=== PATIENT | female | born 1990 | race Caucasian/White ===

== ENCOUNTER 2017-05-13 20:46 | Inpatient (IN) | payer MEDICAID ==
[2017-05-13 20:46] VITALS: BMI 37.0
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
[2017-05-14 00:56] LABS: HEMOGLOBIN 12.7 g/dL (12.0-16.0); MEAN CORPUSCULAR HEMOGLOBIN 24.7 pg (27.0-31.0); MEAN CORPUSCULAR HGB CONC 31.3 g/dL (33.0-37.0); RBC 5.12 Mil/uL (3.80-5.20); RED CELL DISTRIBUTION WIDTH 16.3 % (11.5-14.5); WHITE BLOOD COUNT 12.9 K/uL (4.8-10.8)
[2017-05-14 01:04] LABS: SQUAMOUS EPITHIAL 3 /hpf (0-5); URINE BACTERIA RARE (<OCC); URINE BILIRUBIN NEGATIVE (NEGATIVE); URINE BLOOD NEGATIVE (NEGATIVE); URINE CLARITY SLIGHTY-CLOUDY (Clear); URINE COLOR YELLOW (YELLOW); URINE GLUCOSE (UA) NEG (Normal); URINE LEUKOCYTE ESTERASE SMALL Leu/uL (Negative); URINE NITRATE NEGATIVE (NEGATIVE); URINE PROTEIN NEGATIVE (NEGATIVE); URINE UROBILINOGEN 0.2-1.0 mg/dL (0.2-1.0)
[2017-05-14 01:05] LABS: ALB/GLOB RATIO 1.3 (1.0-2.1); ALBUMIN 4.2 g/dL (3.5-5.0); ALT/SGPT 36 U/L (9-52); AST/SGOT 22 U/L (14-36); BLOOD UREA NITROGEN 10 mg/dl (7-17); CALCIUM 9.4 mg/dL (8.4-10.2); GFR AFRICAN-AMERICAN > 60; GFR NON-AFRICAN AMERICAN > 60
[2017-05-14 01:25] LABS: BARBITURATES, UR NEGATIVE (NEGATIVE); BENZODIAZEPINES, UR NEGATIVE (NEGATIVE); OPIATES, UR NEGATIVE (NEGATIVE); PHENCYCLIDINE, UR NEGATIVE (NEGATIVE)
--- NOTE | 2017-05-14 02:19 | ED PDOC ---
- Laboratory Results Result Diagrams: 05/14/17 00:51 05/14/17 00:51 - ECG O2 Sat by Pulse Oximetry: 100 - Progress ED Course And Treament: Case endorsed to underwriter from Gus GREENE pending crisis eval Patient evaluated by insulation worker; to be admitted to [facility]. Macrobid dose given in ED for UTI. Patient medically stable for psych admission. Disposition - Clinical Impression Clinical Impression: Depression, UTI (urinary tract infection) - POA Present On Arrival: None - Disposition Disposition: Admitted as In-Patient Disposition Time: 02:18 Condition: STABLE
[2017-05-14 02:50] VITALS: O2SAT 98
[2017-05-14] MEDS ORDERED: Alum-Mag Hydrox-Simethicone Susp (30 mL) PO PRN (03:47)
[2017-05-14] MEDS ORDERED: DiphenhydrAMINE 50 mg/ml Inj IM PRN (03:47)
[2017-05-14] MEDS ORDERED: Magnesium Hydroxide Susp 30 ml UD PO PRN (03:47)
--- NOTE | 2017-05-14 04:15 | PCM.BM ---
<Cisco Petit - Last Filed: 05/14/17 04:12> Treatment Plan Problems - Problems identified on initial assessmt Altered Sleep Pattern Date Initiated: 05/14/17 Time Initiated: 04:13 Assessment reference: NA Status: Active Less Than Optimal Nutrition Date Initiated: 05/14/17 Time Initiated: 04:14 Assessment reference: NA Status: Active Treatment assets and liabiliti Patient Assests: adapts well, cooperative, self-reliant, ADL independent, physically healthy, good support system Patient Liabilities: financial problems, other ( in family) - Milieu Protocol Maintain good personal hygiene: daily Encourage regular showers, daily Remind patient to perform daily oral care, daily Assist patient to perform ADL's Conduct patient checks and document Observation sheet: Q15 minutes Maintain personal safety: every shift Educate patient to report safety concerns to staff, every shift Monitor environment for contraband/sharps Medication safety: Monitor for expected outcome, potential side effects: every shift, Assess barriers to learning: every shift, Assess readiness for medication education: every shift <Abdiaziz Ramírez J - Last Filed: 05/17/17 11:44> Family Contact Family contact name: Helen () Family contacted how many times per week?: 4 Family contact comment: Envelope Folding Machine Operator placed call to patients /primary support ( Helen [phone]) to discuss precursors to hospitalization, progress on 3NP and aftercare. Envelope Folding Machine Operator provided clinical updates regarding patients progress and emphasized importance of compliance with aftercare. Patients expressed understanding of the above and denied having concerns regarding patients return home upon further stabilization. Envelope Folding Machine Operator to continue to provide updates thought patients hospitalization and discharge planning. - Goals for Treatment Patient goals for treatment: Pt reported that she would like to have more energy and to feel less depressed with resolved suicidal ideations. 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 PLease see family collateral note above completed by VIKTORIYA Ledezma. Discharge/Continuing Care - Education Needs Education Needs: Patient Medication, Patient Diagnosis/Disease Process, Patient Coping Skills, Patient Community resources, Patient Personal Hygiene/Grooming, Patient Aftercare Safety Plan - Discharge Discharge Criteria: Tolerates medication w/o severe side effects, Free of Suicidal thoughts, Free of paranoid thoughts, Free of agitation, Normal sleep pattern, Ability to care for self, Reduction of target symptoms Discharge to:: Home, With Family - Additional Comments 05/17/17 11:40 Pt reported that she is tired and feels that this is because she is getting too many medications during the day. Dr. Ferrer agreed to break up pt's Cymbalta to 30mg in the AM and 60mg HS. Dr. Ferrer reported that she does not feel comfortable raising pt's Abilify to more than 5mg at this time and will keep her other medications the same. Pt would like to remain at [facility] for med management and continue to see Ailyn at [facility] for therapy. Pt did admit to "on and off" suicidal ideations with intent, but without plan today. Pt verbalized wanting to leave either Saturday or Saturday. It was also agreed that pt's Klonopin would be moved to 1mg at 1330 and 2100. - Treatment Team Participation Discussed with Family/SO: Yes Was Patient/Family/SO present at Treatment Team Meeting: Yes
[2017-05-14 09:28] LABS: T4 9.01 ug/dl (5.5-11.0)
[2017-05-14 09:42] LABS: T3 1.23 nmol/L (1.49-2.60)
[2017-05-14] MEDS: Albuterol HFA 90 mcg/actuation (8 g) IH SCH ×3 (14:22→20:39)
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
[2017-05-15] MEDS: Albuterol HFA 90 mcg/actuation (8 g) IH SCH ×4 (02:45→21:34)
[2017-05-15] MEDS: Naproxen 500 MG TAB PO PRN (09:47)
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
[2017-05-16] MEDS: Albuterol HFA 90 mcg/actuation (8 g) IH SCH ×4 (02:00→21:08)
[2017-05-16 07:02] LABS: BASO # 0.1 K/uL (0.0-0.2); BASO % 0.7 % (0.0-2.0); EOS # 0.5 K/uL (0.0-0.7); LYMPH % 35.3 % (20.0-40.0); MEAN CELL VOLUME 79.1 fl (81.0-99.0); MEAN CORPUSCULAR HEMOGLOBIN 24.9 pg (27.0-31.0); MEAN CORPUSCULAR HGB CONC 31.4 g/dL (33.0-37.0); MEAN PLATELET VOLUME 8.2 fl (7.2-11.7); MONO # 0.7 K/uL (0.0-0.8); MONO % 6.2 % (0.0-10.0); NEUT # 6.1 K/uL (1.8-7.0); NEUT % 53.8 % (50.0-75.0); RBC 4.83 Mil/uL (3.80-5.20); RED CELL DISTRIBUTION WIDTH 16.1 % (11.5-14.5); WHITE BLOOD COUNT 11.4 K/uL (4.8-10.8)
[2017-05-16 07:28] LABS: ALB/GLOB RATIO 1.3 (1.0-2.1); ALBUMIN 3.7 g/dL (3.5-5.0); ALT/SGPT 33 U/L (9-52); AST/SGOT 18 U/L (14-36); BLOOD UREA NITROGEN 9 mg/dl (7-17); CALCIUM 9.2 mg/dL (8.4-10.2); GFR AFRICAN-AMERICAN > 60; GFR NON-AFRICAN AMERICAN > 60
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
[2017-05-17] MEDS: Albuterol HFA 90 mcg/actuation (8 g) IH SCH ×3 (02:00→14:00)
--- NOTE | 2017-05-17 11:19 | PCM.PYCHPN ---
Psychiatric Progress Note - Psychiatric Progress Note Patient seen today, length of contact: Patient evaluated, case discussed with team, chart reviewed Patient Chief Complaint: Patient continues to report feeling depressed and anxious. She reports that she feels overly tired in the morning, so we discussed changing the timing of her current medications. She reports that she has intermittent thoughts that she wishes she was , but denies active suicidal plan/intent and is able to contract for safety. NO AH/VH/HI/delusions. Medication Change: Yes (Change timing of Klonopin and Cymbalta) Medical Record Reviewed: Yes Consults ordered or reviewed: Medicine consult Mental Status Examination - Cognitive Function Orientation: Person, Place, Situation, Time Memory: Intact Attention: WNL Concentration: WNL Association: WNL Fund of Knowledge: [facility] Decription of patient's judgement and insights: Fair I/J - Mood Mood: Depressed, Anxious - Affect Affect: Constricted, Depressed - Speech Speech: Soft - Formal Thought Process Formal Thought Process: No Impairment Psychotic Thoughts and Behaviors: NO AH/VH/paranoia/delusions - Suicidal Ideation Suicidal Ideation: No - Homicidal Ideation Homicidal Ideation: No Goal/Treatment Plan - Goal/Treatment Plan Need for Continued Stay: Remain at risks for inpatient hospitalization, Severe depression anxiety, Discharge may exacerbated symptoms Progress Toward Problem(s) and Goals/Treatment Plan: Major Depressive Disorder; Generalized Anxiety Disorder; PTSD -Continue Trazodone, Abilify and Prazosin -Change timing of Cymbalta and Klonopin dosing -Individual and group therapy -Psychoeducation -Disposition planning Estimated Date of D/C: 05/20/17
[2017-05-18] MEDS: Albuterol HFA 90 mcg/actuation (8 g) IH SCH ×5 (07:16→20:05)
--- NOTE | 2017-05-18 10:43 | PCM.PYCHPN ---
Psychiatric Progress Note - Psychiatric Progress Note Patient seen today, length of contact: Patient evaluated, case discussed with team, chart reviewed Patient Chief Complaint: pt still feels sad and anxious at night and cant sleep pt denies suicidal ideation.pt denies hallucinations and still has poor insight regarding her suicidal attempt by overdose on pills and need further stabilization.pt has a lot of somatic complaints like back pain and burning in urine. Medication Change: Yes (Change timing of Klonopin and Cymbalta) Medical Record Reviewed: Yes Mental Status Examination - Cognitive Function Orientation: Person, Place, Situation, Time Memory: Intact Attention: WNL Concentration: WNL Association: WNL Fund of Knowledge: WNL - Mood Mood: Depressed, Anxious - Affect Affect: Constricted, Depressed - Speech Speech: Soft - Formal Thought Process Formal Thought Process: No Impairment - Suicidal Ideation Suicidal Ideation: No - Homicidal Ideation Homicidal Ideation: No Goal/Treatment Plan - Goal/Treatment Plan Need for Continued Stay: Remain at risks for inpatient hospitalization, Severe depression anxiety, Discharge may exacerbated symptoms Progress Toward Problem(s) and Goals/Treatment Plan: will continue cymbalta and abikify and titrate as needed to stabilize and will increase trazodone to 150 mg hs and engage pt in therapy and groups. Follow up with hospitalist for UTI and back pain.. Estimated Date of D/C: 05/20/17
[2017-05-18] MEDS: Naproxen 500 MG TAB PO PRN (19:08)
[2017-05-18] MEDS: Pantoprazole 40 mg EC Tab PO SCH (19:09)
[2017-05-19] MEDS: Naproxen 500 MG TAB PO PRN (08:05)
[2017-05-19] MEDS: Pantoprazole 40 mg EC Tab PO SCH (09:08)
[2017-05-19] MEDS: Albuterol HFA 90 mcg/actuation (8 g) IH SCH ×4 (09:09→21:00)
--- NOTE | 2017-05-19 13:04 | PCM.PYCHPN ---
Psychiatric Progress Note - Psychiatric Progress Note Patient seen today, length of contact: Patient evaluated, case discussed with team, chart reviewed Patient Chief Complaint: pt reports feeling sick with sore throat and nausea and prescribed zofran by hospitalist .pt still feels sad and anxious at night and cant sleep pt denies suicidal ideation.pt denies hallucinations and still has poor insight regarding her suicidal attempt by overdose on pills and need further stabilization.pt has a lot of somatic complaints like back pain and burning in urine. Medication Change: Yes (Change timing of Klonopin and Cymbalta) Medical Record Reviewed: Yes Mental Status Examination - Cognitive Function Orientation: Person, Place, Situation, Time Memory: Intact Attention: WNL Concentration: WNL Association: WNL Fund of Knowledge: WNL - Mood Mood: Depressed, Anxious - Affect Affect: Constricted, Depressed - Speech Speech: Soft - Formal Thought Process Formal Thought Process: No Impairment - Suicidal Ideation Suicidal Ideation: No - Homicidal Ideation Homicidal Ideation: No Goal/Treatment Plan - Goal/Treatment Plan Need for Continued Stay: Remain at risks for inpatient hospitalization, Severe depression anxiety, Discharge may exacerbated symptoms Progress Toward Problem(s) and Goals/Treatment Plan: will continue cymbalta and abikify and titrate as needed to stabilize and will increase trazodone to 150 mg hs and engage pt in therapy and groups. Follow up with hospitalist for UTI and back pain.. Estimated Date of D/C: 05/20/17
[2017-05-20] MEDS: Albuterol HFA 90 mcg/actuation (8 g) IH SCH ×4 (02:00→20:40)
[2017-05-20] MEDS: Pantoprazole 40 mg EC Tab PO SCH (08:42)
--- NOTE | 2017-05-20 19:43 | PCM.PYCHPN ---
Psychiatric Progress Note - Psychiatric Progress Note Patient seen today, length of contact: THIS NOTE WAS STARTED IN ER BY THIS PROJECT MANAGEMENT PROFESSIONAL TODAY Patient Chief Complaint: was feeling depressed suicidal thoughts after reported recent of sister in law with which she was reportedly close (pt previous admission to [facility], [place] was s/ p of brother in law with who she was reportedly very close". Problems Identified/Issues Discussed: alteration in mood Medication Change: Yes (Change timing of Klonopin and Cymbalta) Medical Record Reviewed: Yes Mental Status Examination - Cognitive Function Orientation: Person, Place, Situation, Time Memory: Intact Attention: WNL Concentration: WNL Association: WNL Fund of Knowledge: WNL - Mood Mood: Depressed, Anxious - Affect Affect: Constricted, Depressed - Speech Speech: Soft - Formal Thought Process Formal Thought Process: No Impairment - Suicidal Ideation Suicidal Ideation: No - Homicidal Ideation Homicidal Ideation: No Goal/Treatment Plan - Goal/Treatment Plan Need for Continued Stay: Remain at risks for inpatient hospitalization, Severe depression anxiety, Discharge may exacerbated symptoms Progress Toward Problem(s) and Goals/Treatment Plan: inpt admission per attending md vital signs and clinical assessment per protocol and per clinical status hospitalist consult cymbalta 90 mg po daily gabapentin 400mg po tid prns per unit protocol discharge planning in progress Estimated Date of D/C: 05/20/17
--- NOTE | 2017-05-20 20:13 | PCM.PYCHPN ---
Psychiatric Progress Note - Psychiatric Progress Note Patient seen today, length of contact: case discussed with team, chart reviewed Patient Chief Complaint: is feeling less depressed with less suicidal thoughts. admits that she has been fairly stable, at times somewhat irritable uncertain if related to abilify as she does not recall having this before, uncertain if dry eyes, ? changes in distance vision. pt is reported to have been out and about unit. staff report that pt is noted to be out in unit interacting with peers, denying any such complaints during shift today. Problems Identified/Issues Discussed: alteration in mood Medical Problems: per chart Diagnostic Results: per psychiatry per medicine per nursing per social work per recreational therapy Medication Change: Yes (pt may defer am dose of ability and discuss with team) Medical Record Reviewed: Yes Consults ordered or reviewed: pt being followed by hospitalist Mental Status Examination - Cognitive Function Orientation: Person, Place, Situation, Time Memory: Intact Attention: WNL Concentration: WNL Association: WNL Fund of Knowledge: WNL Decription of patient's judgement and insights: somewhat impaired - Mood Mood: Depressed, Anxious - Affect Affect: Constricted, Depressed - Speech Speech: Soft - Formal Thought Process Formal Thought Process: No Impairment - Suicidal Ideation Suicidal Ideation: No - Homicidal Ideation Homicidal Ideation: No Goal/Treatment Plan - Goal/Treatment Plan Need for Continued Stay: Remain at risks for inpatient hospitalization, Severe depression anxiety, Discharge may exacerbated symptoms Progress Toward Problem(s) and Goals/Treatment Plan: inpt milieu vital signs and clinical assessment per protocol and per clinical status adjust meds per status pt may defer abilify in am if desired and discuss with team prns per unit protocol discharge planning in progress Estimated Date of D/C: 05/20/17 - Smoking Cessation Smoking Cessation Initiated: No Reason for not providing: pt defers
[2017-05-21] MEDS: Albuterol HFA 90 mcg/actuation (8 g) IH SCH ×4 (02:00→21:12)
[2017-05-21] MEDS: Pantoprazole 40 mg EC Tab PO SCH (08:55)
--- NOTE | 2017-05-21 11:45 | PCM.PYCHPN ---
Psychiatric Progress Note - Psychiatric Progress Note Patient seen today, length of contact: Patient evaluated, case discussed with team, chart reviewed Patient Chief Complaint: Patient states that she does not want to take the Abilify anymore because she believes it is giving her blurred vision and "masked facies." Patient read some information on the potential side effects of the medications and is concerned that she will develop more adverse effects. On evaluation, patient does not have any visual defects or masked facies. She reports that her mood is improving. No current SI/HI. She is not agreeable to making any more medication changes and would like to be discharged to home tomorrow w/ outpatient follow-up. Psychoeducation was provided that that patient needs therapy more than continual medication modifications at this point as her symptoms would be better treated with prior authorization nurse therapy. Medication Change: Yes (Stop Abilify) Medical Record Reviewed: Yes Consults ordered or reviewed: Medicine consult Mental Status Examination - Cognitive Function Orientation: Person, Place, Situation, Time Memory: Intact Attention: WNL Concentration: WNL Association: WNL Fund of Knowledge: WN Decription of patient's judgement and insights: Fair I/J - Mood Mood: Anxious - Affect Affect: Broad - Speech Speech: Soft - Formal Thought Process Formal Thought Process: No Impairment Psychotic Thoughts and Behaviors: NO AH/VH/paranoia/delusions - Suicidal Ideation Suicidal Ideation: No - Homicidal Ideation Homicidal Ideation: No Goal/Treatment Plan - Goal/Treatment Plan Need for Continued Stay: Discharge may exacerbated symptoms Progress Toward Problem(s) and Goals/Treatment Plan: Major Depressive Disorder; Generalized Anxiety Disorder; PTSD -Continue Trazodone, Prazosin, Cymbalta and Klonopin -Stop Abilify -Individual and group therapy -Psychoeducation -Disposition planning Estimated Date of D/C: 05/22/17
[2017-05-22 09:08] VITALS: BP 148/99; PULSE 95; RESP 20; TEMP 97.3
[2017-05-22] MEDS: Albuterol HFA 90 mcg/actuation (8 g) IH SCH (09:31)
[2017-05-22] MEDS: Pantoprazole 40 mg EC Tab PO SCH (09:32)
--- NOTE | 2017-05-22 11:39 | PCM.PYCHDC ---
Mental Status Examination - Mental Status Examination Orientation: Person, Place, Situation, Time Memory: Intact Mood: Neutral Affect: Broad Speech: Appropriate Attention: WNL Concentration: WNL Association: WNL Fund of Knowledge: WNL Formal Thought Process: No Impairment Description of patient's judgement and insight: partial insight and fair judgment Psychotic Thoughts and Behaviors: pt denied any psychotic symptoms at current mental status, non elicited Suicidal Ideation: No Current Homicidal Ideation?: No Discharge Summary - Discharge Note Reason for Hospitalization: pt was feeling depressed came to er concerned about s/i without plan status reported of sister in law recently. reportedly very close. similar previous admission with reported of brother in law with whom she was very close. pt was following up at [facility] for psychiatry. [facility] indicate pt was discharge on cymbalta 90mg (pt also reported hx of left side chronic neuropathy) and gabapentin 400mg po tid. lives in [facility] with female signicant other. hs of self injurous behavior inlcuding cutting. previous hx of clonazepam use. Psychiatric History (includes Medical, Family, Personal Hx): presentation to er s/i inpt admission Consultations:: List each consultation separately and include: 1. Reason for request. 2. Findings. 3. Follow-up Summary of Hospital Course include:: 1. Description of specific treatment plan utilized for patients during their course of treatmen. 2. Summarize the time- course for resolution of acute symptoms and/or regressed behaviors. 3. Describe issues identified and worked on during hospitalization. 4. Describe medication utilized. 5. Describe medical problems identified and treated. 6. Reassessment of suicide risk Summary of Hospital Course: pt on admission was started on cymbalta and klonopin, and trazdone pt was offered group therapy and CBT, PT gradually presented with brighter affect oN discharge discussed with pt the possible precipitating factors for admission and possible coping skills with depression and alternative ways of communication other than self harm pt was able to verbalize coping startegies as calling her or her therapist pt mental status on discharge was stable, she denied any current suicidal or homicidal ideations any denied thoughts of self harm at current mental status not danger to self or others pt denied any current side effects of her medications, follow up arranged by social psychologist with outpatient psychiatrist and therapist - Final Diagnosis (DSM 5) Condition upon Discharge: STABLE DSM 5: major depression recurrent borderline pesonality disorder Disposition: HOME/ ROUTINE Prescriptions/Medication Reconciliation: clonazePAM [Klonopin] 1 mg PO HS 3 Days #3 tab clonazePAM [Klonopin] 1 mg PO DAILY@1300 3 Days #3 tab DULoxetine [Cymbalta] 30 mg PO DAILY 15 Days #15 ecc DULoxetine [Cymbalta] 60 mg PO HS 15 Days #15 ecc Gabapentin [Neurontin] 400 mg PO TID 45 Days #45 cap Prazosin HCl [Minipress] 1 mg PO HS 15 Days #15 cap Topiramate [Topamax] 100 mg PO HS 15 Days #15 tab Topiramate [Topamax] 50 mg PO DAILY 15 Days #15 tab traZODone [Desyrel] 150 mg PO HS 15 Days #45 tab - Antipsychotic Medications Pt discharged on 2 or more routine antipsychotic medications: No
== END 2017-05-22 14:33 | disposition home or self-care (01) | DRG 430 ==
LOC: H.ER 20:46 → H.ERHOLD 05-14 02:17 → H.PSYCH 05-14 03:30
PROVIDERS: ADMIT Psychiatry & Neurology Psychiatry; ATTEND Psychiatry & Neurology Psychiatry
DX: F33.9 Major depressive disorder, recurrent, unspecified (principal); R45.851 Suicidal ideations; G62.9 Polyneuropathy, unspecified; F41.1 Generalized anxiety disorder; Z68.42 Body mass index [BMI] 45.0-49.9, adult; E66.9 Obesity, unspecified; F43.10 Post-traumatic stress disorder, unspecified; G43.909 Migraine, unspecified, not intractable, without status migrainosus; Z62.810 Personal history of physical and sexual abuse in childhood; J02.9 Acute pharyngitis, unspecified; J45.909 Unspecified asthma, uncomplicated; Z91.5 Personal history of self-harm; F17.200 Nicotine dependence, unspecified, uncomplicated; F60.3 Borderline personality disorder

== ENCOUNTER 2017-09-11 18:37 | Inpatient (IN) | payer MEDICAID ==
[2017-09-11 18:37] VITALS: BMI 37.0
[2017-09-11 18:46] VITALS: O2SAT 100
[2017-09-11 20:39] LABS: OPIATES, UR NEGATIVE (NEGATIVE)
[2017-09-11 20:40] LABS: BARBITURATES, UR NEGATIVE (NEGATIVE); BENZODIAZEPINES, UR NEGATIVE (NEGATIVE)
--- NOTE | 2017-09-11 20:59 | ED PDOC ---
HPI: Psych/Substance Abuse Time Seen by Provider: 09/11/17 19:14 Chief Complaint (Nursing): Psychiatric Evaluation History Per: Patient History/Exam Limitations: no limitations Additional Complaint(s): 26 yo F presents for psychiatric evaluation for feeling depressed for 2 month, adds that she has been having SI x 1 week. Other psychiatric symptoms: (-) hallucinations, (+) suicidal ideation in the past, (-) homicidal ideation. Otherwise: (-) trauma, (-) fever, (-) headache, (-) dyspnea, (-) vomiting, (-) substance abuse, (-) patient intent of initiating a suicide attempt, (-) plan. Past Medical History Vital Signs: Last Vital Signs Temp 97.7 F 09/11/17 18:43 Pulse 84 09/11/17 18:43 Resp 16 09/11/17 18:43 BP 124/87 09/11/17 18:43 Pulse Ox 100 09/11/17 18:43 - Medical History PMH: Anxiety, Asthma, Bipolar Disorder, Bronchitis, Depression, Migraine, Personality Disorder, Post Traumatic Stress Disorder Denies: Alzheimer's Disease, Anemia, Arthritis, Cardia Arrhythmia, CHF, COPD , Crohn's Disease, Dementia, Diabetes, Diverticulitis, Emphysema, Fibromyalgia, Fractures, Gastrointestinal Ulcer, Gall Bladder Disease, Hepatitis, HIV, HTN, Hypercholesterolemia, Hyperthyroidism, Hypothyroidism, Kidney Stones, Mitral Valve Prolapse, Osteoporosis, Pancreatitis, Paranoia, Parkinson's Disease, Peripheral Edema, Pneumonia, Chronic Kidney Disease, Schizophrenia, Seizures, Sickle Cell Disease, Sexually Transmitted Disease, Sleep Apnea, TIA - Surgical History Surgical History: Denies: Appendectomy, Cholecystectomy, Coronary Stent, Pacemaker - Family History Family History: States: Unknown Family Hx - Home Medications Home Medications: Ambulatory Orders Medication Instructions Recorded clonazePAM [Klonopin] 1 mg PO BID PRN #60 tab 06/17/16 traZODone [Desyrel] 75 mg PO HS #45 tab 06/17/16 Gabapentin [Neurontin] 400 mg PO TID 09/08/16 Albuterol HFA [Ventolin HFA 90 2 puff IH [id number] #1 in 12/10/16 mcg/actuation (8 g)] Naproxen [Naprosyn] 500 mg PO DAILY 05/14/17 Sodium Chloride 0.65% [Deep Sea] 1 spray BARBARA PRN PRN MDD 14 days 05/14/17 only Topiramate [Topamax] 50 mg PO QD7 05/14/17 Tramadol HCl [Ultram] 50 mg PO Q6 05/14/17 DULoxetine [Cymbalta] 30 mg PO DAILY 15 Days #15 ecc 05/22/17 DULoxetine [Cymbalta] 60 mg PO HS 15 Days #15 ecc 05/22/17 Gabapentin [Neurontin] 400 mg PO TID 45 Days #45 cap 05/22/17 Prazosin HCl [Minipress] 1 mg PO HS 15 Days #15 cap 05/22/17 Topiramate [Topamax] 50 mg PO DAILY 15 Days #15 tab 05/22/17 Topiramate [Topamax] 100 mg PO HS 15 Days #15 tab 05/22/17 clonazePAM [Klonopin] 1 mg PO DAILY@1300 3 Days #3 tab 05/22/17 clonazePAM [Klonopin] 1 mg PO HS 3 Days #3 tab 05/22/17 traZODone [Desyrel] 150 mg PO HS 15 Days #45 tab 05/22/17 - Allergies Allergies/Adverse Reactions: Allergies Allergy/AdvReac Type Severity Reaction Status Date / Time beef derived (bovine) AdvReac VOMITING Verified 09/11/17 18:42 chicken derived AdvReac VOMITING Verified 09/11/17 18:42 PORK AdvReac VOMITING Verified 09/11/17 18:42 shellfish derived AdvReac VOMITING Verified 09/11/17 18:42 Review of Systems Constitutional: Negative for: Fever, Malaise Cardiovascular: Negative for: Chest Pain, Palpitations Respiratory: Negative for: Cough, Shortness of Breath Gastrointestinal: Negative for: Vomiting, Abdominal Pain, Diarrhea Genitourinary Female: Negative for: Dysuria, Hematuria Skin: Negative for: Rash, Lesions Neurological: Negative for: Weakness, Numbness Psych: Positive for: Anxiety, Depression, Suicidal ideation Physical Exam - Physical Exam Comments: GENERAL APPEARANCE: Patient is awake, alert, oriented x 3, in no acute distress. SKIN: Warm, dry; (-) cyanosis. HEAD: (-) scalp swelling, (-) scalp tenderness. EYES: (-) conjunctival pallor, (-) scleral icterus, (-) nystagmus. ENMT: Mucous membranes moist. Airway patent: (-) stridor. NECK: (-) tenderness, (-) stiffness, (-) lymphadenopathy. CHEST AND RESPIRATORY: (-) rales, (-) rhonchi, (-) wheezes; breath sounds equal. ABDOMEN: Soft, (-) distention, (-) tenderness, (-) guarding. NEURO AND PSYCH: Mental status as above. Affect: flat. Memory: Intact. wood chopper: Pupils equal and reactive; EOMI; (-) facial asymmetry; tongue and uvula midline. Strength symmetric. - Laboratory Results Result Diagrams: 09/11/17 21:15 09/11/17 21:15 - ECG O2 Sat by Pulse Oximetry: 100 Medical Decision Making Medical Decision Making: Plan : - Labs - Crisis evaluation Patient seen and evaluated by crisis. After crisis evaluation, plan will be for inpatient admission for depression as per Dr. Manriquez. Labs reviewed, patient noted to have a UTI. Medicated with macrobid PO. Disposition - Clinical Impression Clinical Impression: Depression, UTI (urinary tract infection) - Patient ED Disposition Is Patient to be Admitted: Yes Counseled Patient/Family Regarding: Studies Performed, Diagnosis - Disposition Disposition Time: 21:00 Condition: STABLE - PA / LOOM CHANGEOVER OPERATOR / Resident Statement /DO has reviewed & agrees with the documentation as recorded.
[2017-09-11 21:05] LABS: PHENCYCLIDINE, UR NEGATIVE (NEGATIVE)
[2017-09-11 21:26] LABS: BASO # 0.1 K/uL (0.0-0.2); BASO % 0.8 % (0.0-2.0); EOS # 0.5 K/uL (0.0-0.7); EOS % 4.4 % (0.0-4.0); HEMOGLOBIN 13.2 g/dL (12.0-16.0); LYMPH # 3.8 K/uL (1.0-4.3); LYMPH % 31.7 % (20.0-40.0); MEAN CELL VOLUME 80.7 fl (81.0-99.0); MEAN CORPUSCULAR HEMOGLOBIN 26.6 pg (27.0-31.0); MEAN CORPUSCULAR HGB CONC 32.9 g/dL (33.0-37.0); MEAN PLATELET VOLUME 8.7 fl (7.2-11.7); MONO # 0.3 K/uL (0.0-0.8); MONO % 2.8 % (0.0-10.0); NEUT # 7.2 K/uL (1.8-7.0); NEUT % 60.3 % (50.0-75.0); NRBC % 0.1 % (0.0-0.0); RBC 4.98 Mil/uL (3.80-5.20); RED CELL DISTRIBUTION WIDTH 14.6 % (11.5-14.5)
[2017-09-11 21:31] LABS: SQUAMOUS EPITHIAL 6 /hpf (0-5); URINE AMORPHOUS SEDIMENT RARE /ul (<OCC); URINE BACTERIA OCC (<OCC); URINE BILIRUBIN NEGATIVE (NEGATIVE); URINE BLOOD NEGATIVE (NEGATIVE); URINE CLARITY CLOUDY (Clear); URINE COLOR YELLOW (YELLOW); URINE GLUCOSE (UA) NEG (Normal); URINE LEUKOCYTE ESTERASE TRACE Leu/uL (Negative); URINE PROTEIN NEGATIVE (NEGATIVE); URINE UROBILINOGEN 0.2-1.0 mg/dL (0.2-1.0)
[2017-09-11 21:36] LABS: BLOOD UREA NITROGEN 7 mg/dl (7-17); CALCIUM 8.7 mg/dL (8.4-10.2); GFR AFRICAN-AMERICAN > 60; GFR NON-AFRICAN AMERICAN > 60
[2017-09-11] MEDS ORDERED: Magnesium Hydroxide Susp 30 ml UD PO PRN (22:50)
[2017-09-11] MEDS ORDERED: DiphenhydrAMINE 50 mg/ml Inj IM PRN (22:50)
[2017-09-11] MEDS ORDERED: Alum-Mag Hydrox-Simethicone Susp (30 mL) PO PRN (22:50)
--- NOTE | 2017-09-11 23:18 | PCM.BM ---
<Bouchra Robins - Last Filed: 09/11/17 23:29> Treatment Plan Problems - Problems identified on initial assessmt Altered Sleep Pattern Date Initiated: 09/11/17 Time Initiated: 23:17 Date resolved: 09/11/17 Assessment reference: NA Status: Active Nutrition More than Body Requirements Date Initiated: 09/11/17 Time Initiated: 23:18 Assessment reference: NA Status: Active Treatment assets and liabiliti Patient Assests: adapts well, cooperative, self-reliant, ADL independent, physically healthy, good support system, cognitively intact Patient Liabilities: relationship conflicts, medical problems - Milieu Protocol Maintain good personal hygiene: daily Remind patient to perform daily oral care , daily Assist patient to perform ADL's, every shift Encourage regular showers Conduct patient checks and document Observation sheet: Q15 minutes Maintain personal safety: every shift Educate patient to report safety concerns to staff, every shift Monitor environment for contraband/sharps Medication safety: Monitor for expected outcome, potential side effects: every shift, Assess barriers to learning: every shift, Assess readiness for medication education: every shift <Praveena Manriquez - Last Filed: 09/16/17 15:06> - Diagnosis (1) Depression Status: Acute Interventions: psychotherapy, pharmacotherapy 09/16/17 15:05
--- NOTE | 2017-09-12 07:14 | CP.PCM.HP ---
History of Present Illness - History of Present Illness History of Present Illness: pt admitted for depression/si. no hallucinations. no acute medical complaints offered. no f/c, n/v/d. med hx asthma. all bw and imaging noted. pt noted w/ uti in er, macrobid started. Present on Admission - Present on Admission Any Indicators Present on Admission: No Review of Systems - Psychiatric Psychiatric: As Per HPI, Depression, Suicidal Ideation Past Patient History - Infectious Disease Hx of Infectious Diseases: None - Tetanus Immunizations Tetanus Immunization: Unknown - Past Medical History & Family History Past Medical History?: Yes - Past Social History Smoking Status: Current Some Days Smoker - CARDIAC Hx Cardiac Disorders: No - PULMONARY Hx Respiratory Disorders: Yes Hx Asthma: Yes Hx Bronchitis: Yes - NEUROLOGICAL Hx Migraine: Yes - HEENT Hx HEENT Problems: No Hx Difficulty Chewing: No - RENAL Hx Chronic Kidney Disease: No Hx Kidney Stones: No - ENDOCRINE/METABOLIC Hx Endocrine Disorders: No Hx Hyperthyroidism: No Hx Hypothyroidism: No - HEMATOLOGICAL/ONCOLOGICAL Hx Anemia: Yes Hx Human Immunodeficiency Virus (HIV): No - INTEGUMENTARY Hx Dermatological Problems: No - MUSCULOSKELETAL/RHEUMATOLOGICAL Hx Arthritis: No Hx Fractures: No Hx Herniated Disk: Yes Hx Osteoporosis: No - GASTROINTESTINAL Hx Gastrointestinal Disorders: No Hx Crohn's Disease: No Hx Diverticulitis: No Hx Gall Bladder Disease: No Hx Pancreatitis: No - GENITOURINARY/GYNECOLOGICAL Hx Genitourinary Disorders: No Hx Sexually Transmitted Disorders: No - PSYCHIATRIC Hx Substance Use: No - SURGICAL HISTORY Hx Surgeries: No Hx Appendectomy: No Hx Cholecystectomy: No Hx Coronary Stent: No - ANESTHESIA Hx Anesthesia: No Hx Anesthesia Reactions: No Hx Malignant Hyperthermia: No Meds Allergies/Adverse Reactions: Allergies Allergy/AdvReac Type Severity Reaction Status Date / Time beef derived (bovine) AdvReac VOMITING Verified 09/11/17 18:42 chicken derived AdvReac VOMITING Verified 09/11/17 18:42 PORK AdvReac VOMITING Verified 09/11/17 18:42 shellfish derived AdvReac VOMITING Verified 09/11/17 18:42 Physical Exam - Constitutional Appears: Well, Non-toxic, No Acute Distress - Head Exam Head Exam: ATRAUMATIC, NORMAL INSPECTION, NORMOCEPHALIC - Eye Exam Eye Exam: EOMI, Normal appearance, PERRL Pupil Exam: NORMAL ACCOMODATION, PERRL - ENT Exam ENT Exam: Mucous Membranes Moist, Normal Exam - Neck Exam Neck exam: Positive for: Normal Inspection - Respiratory Exam Respiratory Exam: Clear to Auscultation Bilateral, NORMAL BREATHING PATTERN - Cardiovascular Exam Cardiovascular Exam: REGULAR RHYTHM, RRR, +S1, +S2 - GI/Abdominal Exam GI & Abdominal Exam: Normal Bowel Sounds, Soft. absent: Tenderness - Extremities Exam Extremities exam: Positive for: full ROM, normal capillary refill, normal inspection, pedal pulses present - Back Exam Back exam: NORMAL INSPECTION - Neurological Exam Neurological exam: Alert, CN II-XII Intact, Normal Gait, Oriented x3, Reflexes Normal - Psychiatric Exam Psychiatric exam: Normal Affect, Normal Mood - Skin Skin Exam: Dry, Intact, Normal Color, Warm Results - Vital Signs Recent Vital Signs: Last Vital Signs Temp 97.4 F L 09/11/17 22:47 Pulse 87 09/11/17 22:47 Resp 20 09/11/17 22:47 BP 132/82 09/11/17 22:47 Pulse Ox 100 09/11/17 22:09 - Labs Result Diagrams: 09/11/17 21:15 09/11/17 21:15 Labs: Laboratory Results - last 24 hr 09/11/17 09/11/17 09/11/17 20:15 21:15 21:15 WBC 12.0 H RBC 4.98 Hgb 13.2 Hct 40.2 MCV 80.7 L MCH 26.6 L MCHC 32.9 L RDW 14.6 H Plt Count 267 MPV 8.7 Neut % (Auto) 60.3 Lymph % (Auto) 31.7 [place] % (Auto) 2.8 Eos % (Auto) 4.4 H Baso % (Auto) 0.8 Neut # (Auto) 7.2 H Lymph # (Auto) 3.8 [place] # (Auto) 0.3 Eos # (Auto) 0.5 Baso # (Auto) 0.1 Sodium 140 Potassium 3.6 Chloride 107 Carbon Dioxide 26 Anion Gap 11 BUN 7 Creatinine 0.6 L Est GFR ( Amer) > 60 Est GFR (Non-Af Amer) > 60 Random Glucose 116 H Calcium 8.7 Urine Color Urine Clarity Urine pH Ur Specific [place] Urine Protein Urine Glucose (UA) Urine Ketones Urine Blood Urine Nitrate Urine Bilirubin Urine Urobilinogen Ur Leukocyte Esterase Urine RBC (Auto) Urine Microscopic WBC Ur Squamous Epith Cells Amorphous Sediment Urine Bacteria Urine Opiates Screen Negative Urine Methadone Screen Negative Ur Barbiturates Screen Negative Ur Phencyclidine Scrn Negative Ur Amphetamines Screen Negative U Benzodiazepines Scrn Negative U Oth Cocaine Metabols Negative U Cannabinoids Screen Negative Alcohol, Quantitative < 10 09/11/17 21:15 WBC RBC Hgb Hct MCV MCH MCHC RDW Plt Count MPV Neut % (Auto) Lymph % (Auto) [place] % (Auto) Eos % (Auto) Baso % (Auto) Neut # (Auto) Lymph # (Auto) [place] # (Auto) Eos # (Auto) Baso # (Auto) Sodium Potassium Chloride Carbon Dioxide Anion Gap BUN Creatinine Est GFR ( Amer) Est GFR (Non-Af Amer) Random Glucose Calcium Urine Color Yellow Urine Clarity Cloudy Urine pH 8.0 Ur Specific [place] 1.018 Urine Protein Negative Urine Glucose (UA) Neg Urine Ketones Negative Urine Blood Negative Urine Nitrate Negative Urine Bilirubin Negative Urine Urobilinogen 0.2-1.0 Ur Leukocyte Esterase Trace Urine RBC (Auto) 1 Urine Microscopic WBC 10 H Ur Squamous Epith Cells 6 H Amorphous Sediment Rare H Urine Bacteria Occ H Urine Opiates Screen Urine Methadone Screen Ur Barbiturates Screen Ur Phencyclidine Scrn Ur Amphetamines Screen U Benzodiazepines Scrn U Oth Cocaine Metabols U Cannabinoids Screen Alcohol, Quantitative Assessment & Plan (1) DVT prophylaxis Assessment and Plan: ambulation Status: Acute (2) Asthma, well controlled Assessment and Plan: albuterol prn Status: Acute (3) Depression Assessment and Plan: cont psych meds interventions, therapies Status: Acute (4) UTI (urinary tract infection) Assessment and Plan: macrobid, f/u cs Status: Acute Decision To Admit - Pt Status Changed To: Hospital Disposition Of: Inpatient - Admit Certification Admit to Inpatient:: After my assessment, the patient will require hospitalization for at least two midnights. This is because of the severity of symptoms shown, intensity of services needed, and/or the medical risk in this patient being treated as an outpatient. - . Bed Request Type: Adult Psychiatry Admitting Physician: Cari Cuello
[2017-09-12 09:48] LABS: T4 7.91 ug/dl (5.5-11.0)
[2017-09-12] MEDS: Albuterol HFA 90 mcg/actuation (8 g) IH SCH (10:45)
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
[2017-09-13] MEDS: Albuterol HFA 90 mcg/actuation (8 g) IH SCH ×5 (08:42→20:18)
[2017-09-13] MEDS: Naproxen 500 MG TAB PO SCH ×2 (15:19→21:21)
--- NOTE | 2017-09-13 16:04 | PCM.PYCHPN ---
Psychiatric Progress Note - Psychiatric Progress Note Patient seen today, length of contact: pt evaluated discussed with team chart reviewed Patient Chief Complaint: I get very anxious and I dissociate Problems Identified/Issues Discussed: pt evaluated with treatment team, presenting with anxious mood and affect, reported feeling depressed due to lack of structure in her life and loosing her job also due to being continuosly in pain, pt reported low energy and anhedonia, episodes of dissociation, discussed with pt increasing the dose of cymbalta, also discussed adding risperidone for low impulse control pt denied any current thought s of self harm, denied side effects of medications Medical Problems: hx of depression PTSD borderline personality, multiple inpatient hospitalizations, reportedly compliant with treatment DSM 5 Symptoms Update: major depression borderline personality disorder Medication Change: Yes (start risperidone) Medical Record Reviewed: Yes Mental Status Examination - Cognitive Function Orientation: Person, Place, Situation, Time Attention: WNL Concentration: Poor Association: WNL Fund of Knowledge: WNL Decription of patient's judgement and insights: partial insight poor judgment - Mood Mood: Depressed, Anxious - Affect Affect: Constricted, Depressed - Speech Speech: Soft - Formal Thought Process Formal Thought Process: Circumstantial Psychotic Thoughts and Behaviors: reported episodes of dissociation - Suicidal Ideation Suicidal Ideation: No - Homicidal Ideation Homicidal Ideation: No Goal/Treatment Plan - Goal/Treatment Plan Need for Continued Stay: Severe depression anxiety, Discharge may exacerbated symptoms Progress Toward Problem(s) and Goals/Treatment Plan: increase cymbalta 120mg daily neurontin 300mg tid discontinue abilify , start risperidone 0.5mg qhs , trazodone 100mg qhs minipress 2mg qhs monitor pt for psychopharmacological effects and side effect profile cbt group and supportive therapy
[2017-09-13] MEDS: Risperidone M tab 0.5MG PO SCH (21:22)
[2017-09-14] MEDS: Albuterol HFA 90 mcg/actuation (8 g) IH SCH ×5 (02:15→21:18)
--- NOTE | 2017-09-14 08:43 | PCM.PYCHPN ---
Psychiatric Progress Note - Psychiatric Progress Note Patient seen today, length of contact: pt evaluated discussed with team chart reviewed Patient Chief Complaint: pt is still very anxious and depressed and still has nightmares Medication Change: Yes (start risperidone) Medical Record Reviewed: Yes Mental Status Examination - Cognitive Function Orientation: Person, Place, Situation, Time Attention: WNL Concentration: Poor Association: WNL Fund of Knowledge: WNL - Mood Mood: Depressed, Anxious - Affect Affect: Constricted, Depressed - Speech Speech: Soft - Formal Thought Process Formal Thought Process: Circumstantial - Suicidal Ideation Suicidal Ideation: No - Homicidal Ideation Homicidal Ideation: No Goal/Treatment Plan - Goal/Treatment Plan Need for Continued Stay: Severe depression anxiety, Discharge may exacerbated symptoms Progress Toward Problem(s) and Goals/Treatment Plan: will change klonopin to 0.5,mg am and hs and continue to titrate meds . d/c plans as per dr munroe
[2017-09-14] MEDS: Naproxen 500 MG TAB PO SCH ×2 (09:14→21:30)
[2017-09-14] MEDS: Risperidone M tab 0.5MG PO SCH (21:15)
[2017-09-15] MEDS: Albuterol HFA 90 mcg/actuation (8 g) IH SCH ×4 (02:13→21:06)
[2017-09-15] MEDS: Naproxen 500 MG TAB PO SCH ×2 (09:13→21:05)
[2017-09-15] MEDS: Lidocaine 5% Patch TD SCH (09:16)
[2017-09-15] MEDS: Risperidone M tab 0.5MG PO SCH (21:05)
[2017-09-16] MEDS: Albuterol HFA 90 mcg/actuation (8 g) IH SCH ×4 (02:14→21:05)
[2017-09-16] MEDS: Naproxen 500 MG TAB PO SCH ×2 (09:45→21:04)
[2017-09-16] MEDS: Lidocaine 5% Patch TD SCH (09:51)
--- NOTE | 2017-09-16 15:17 | PCM.PYCHPN ---
Psychiatric Progress Note - Psychiatric Progress Note Patient seen today, length of contact: pt evaluated discussed with team chart reviewed Patient Chief Complaint: I am less depressed today Problems Identified/Issues Discussed: pt evaluated reported improved mood with the increase in cymbalta, feeling less anxious, brighter affect, participating in groups and interacting with other patients, discussed increasing risperidone to 1mg, for better impulse control, no reported side effects of medications , pt denied any current suicidal or homiocidal ideation, denied perceptual disturbances Medical Problems: hx of depression PTSD borderline personality, multiple inpatient hospitalizations, reportedly compliant with treatment DSM 5 Symptoms Update: major depression PTSD borderline personality disorder Medication Change: Yes (increase risperidone) Medical Record Reviewed: Yes Mental Status Examination - Cognitive Function Orientation: Person, Place, Situation, Time Attention: WNL Concentration: Poor Association: WNL Fund of Knowledge: WNL - Mood Mood: Depressed, Anxious - Affect Affect: Constricted, Depressed - Speech Speech: Soft - Formal Thought Process Formal Thought Process: Circumstantial - Suicidal Ideation Suicidal Ideation: No - Homicidal Ideation Homicidal Ideation: No Goal/Treatment Plan - Goal/Treatment Plan Need for Continued Stay: Severe depression anxiety, Discharge may exacerbated symptoms Progress Toward Problem(s) and Goals/Treatment Plan: cymbalta 120mg daily neurontin 300mg tid increase risperidone 0.5mg1mg qhs , trazodone 100mg qhs minipress 2mg qhs monitor pt for psychopharmacological effects and side effect profile cbt group and supportive therapy
[2017-09-17] MEDS: Albuterol HFA 90 mcg/actuation (8 g) IH SCH ×2 (02:00→09:01)
--- NOTE | 2017-09-17 07:50 | CP.PCM.PN ---
Subjective - Date & Time of Evaluation Date of Evaluation: 09/17/17 Time of Evaluation: 07:49 - Subjective Subjective: pt doing well. no f/c, n/v/d. no copmlaints. psych services continueing Objective - Vital Signs/Intake and Output Vital Signs (last 24 hours): Temp Pulse Resp BP Pulse Ox 97.1 F L 84 20 131/81 100 09/16/17 17:00 09/16/17 17:00 09/16/17 17:00 09/16/17 17:00 09/11/17 22:09 - Medications Medications: Current Medications Acetaminophen (Tylenol 325mg Tab) 650 mg PO Q4 PRN PRN Reason: Pain, moderate (4-7) Last Admin: 09/14/17 16:00 Dose: 650 mg Al Hydrox/Mg Hydrox/Simethicone (Maalox Plus 30 Ml) 30 ml PO Q4 PRN PRN Reason: Dyspepsia Albuterol (Ventolin Hfa 90 Mcg/Actuation (8 G)) 2 puff IH RQ6 [facility] Last Admin: 09/17/17 02:00 Dose: Not Given Clonazepam (Klonopin) 0.5 mg PO AMHS [facility] Last Admin: 09/16/17 21:03 Dose: 0.5 mg Diphenhydramine HCl (Benadryl) 50 mg IM Q6 PRN PRN Reason: Extrapyramidal S/S Unable PO Diphenhydramine HCl (Benadryl) 50 mg PO Q6 PRN PRN Reason: Extrapyramidal Symptoms Diphenhydramine HCl (Benadryl) 50 mg PO HS PRN PRN Reason: Sleep Last Admin: 09/12/17 23:27 Dose: 50 mg Duloxetine HCl (Cymbalta) 120 mg PO DAILY [facility] Last Admin: 09/16/17 09:43 Dose: 120 mg Gabapentin (Neurontin) 300 mg PO TID [facility] Last Admin: 09/16/17 17:59 Dose: 300 mg Haloperidol (Haldol) 5 mg PO Q4 PRN PRN Reason: Agitation Haloperidol Lactate (Haldol) 5 mg IM Q4 PRN PRN Reason: Agitation, Unable to Take PO Hydroxyzine Pamoate (Vistaril) 50 mg PO Q8 PRN PRN Reason: Anxiety Lidocaine (Lidoderm) 1 ea TD DAILY [facility] Last Admin: 09/16/17 09:51 Dose: 1 ea Magnesium Hydroxide (Milk Of Magnesia) 30 ml PO HS PRN PRN Reason: Constipation Naproxen (Naproxen) 500 mg PO Q12 [facility] Last Admin: 09/16/17 21:04 Dose: 500 mg Nitrofurantoin Macrocrystals (Macrobid) 100 mg PO Q12 [facility] PRN Reason: Protocol Last Admin: 09/16/17 21:03 Dose: 100 mg Prazosin HCl (Minipress) 2 mg PO [facility] Last Admin: 09/16/17 21:03 Dose: 2 mg Risperidone (Risperdal Tab) 1 mg PO HS [facility] Last Admin: 09/16/17 21:03 Dose: 1 mg Trazodone HCl (Desyrel) 100 mg PO [facility] Last Admin: 09/16/17 21:03 Dose: 100 mg - Labs Labs: 09/11/17 21:15 09/11/17 21:15 - Constitutional Appears: Well, Non-toxic, No Acute Distress - Head Exam Head Exam: ATRAUMATIC, NORMAL INSPECTION, NORMOCEPHALIC - Eye Exam Eye Exam: EOMI, Normal appearance, PERRL Pupil Exam: NORMAL ACCOMODATION, PERRL - ENT Exam ENT Exam: Mucous Membranes Moist, Normal Exam - Neck Exam Neck Exam: Full ROM, Normal Inspection. absent: Lymphadenopathy - Respiratory Exam Respiratory Exam: Clear to Ausculation Bilateral, NORMAL BREATHING PATTERN - Cardiovascular Exam Cardiovascular Exam: REGULAR RHYTHM, RRR, +S1, +S2. absent: Murmur - GI/Abdominal Exam GI & Abdominal Exam: Soft, Normal Bowel Sounds. absent: Tenderness - Extremities Exam Extremities Exam: Full ROM, Normal Capillary Refill, Normal Inspection. absent : Joint Swelling, Pedal Edema - Back Exam Back Exam: NORMAL INSPECTION - Neurological Exam Neurological Exam: Alert, Awake, CN II-XII Intact, Normal Gait, Oriented x3 - Psychiatric Exam Psychiatric exam: Normal Affect, Normal Mood - Skin Skin Exam: Dry, Intact, Normal Color, Warm Assessment and Plan (1) DVT prophylaxis Status: Acute (2) Asthma, well controlled Status: Acute (3) Depression Status: Acute (4) UTI (urinary tract infection) Status: Acute - Assessment and Plan (Free Text) Assessment: (1) DVT prophylaxis Assessment and Plan: ambulation Status: Acute (2) Asthma, well controlled Assessment and Plan: albuterol prn Status: Acute (3) Depression Assessment and Plan: cont psych meds interventions, therapies Status: Acute (4) UTI (urinary tract infection) Assessment and Plan: macrobid, f/u cs, anbx until 09/19 Status: Acute
[2017-09-17] MEDS: Naproxen 500 MG TAB PO SCH (08:57)
[2017-09-17] MEDS: Lidocaine 5% Patch TD SCH (09:01)
[2017-09-17 09:28] VITALS: BP 138/83; PULSE 76; RESP 18; TEMP 96.4
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
== END 2017-09-17 12:01 | disposition home or self-care (01) | DRG 430 ==
LOC: H.ER 18:37 → H.ERHOLD 21:17 → H.PSYCH 22:42
PROVIDERS: ADMIT Psychiatry & Neurology Psychiatry; ATTEND Psychiatry & Neurology Psychiatry
PROC: GZ51ZZZ Individual Psychotherapy, Behavioral (ICD-10-PCS; 2017-09-12)
PROC: GZHZZZZ Group Psychotherapy (ICD-10-PCS; principal; 2017-09-13)
DX: F33.2 Major depressive disorder, recurrent severe without psychotic features (principal); N39.0 Urinary tract infection, site not specified; F43.10 Post-traumatic stress disorder, unspecified; F60.3 Borderline personality disorder; G47.00 Insomnia, unspecified; J45.909 Unspecified asthma, uncomplicated; R45.851 Suicidal ideations; D64.9 Anemia, unspecified; F31.9 Bipolar disorder, unspecified; F41.9 Anxiety disorder, unspecified; G43.909 Migraine, unspecified, not intractable, without status migrainosus; J40 Bronchitis, not specified as acute or chronic; Z79.899 Other long term (current) drug therapy; F17.200 Nicotine dependence, unspecified, uncomplicated

== ENCOUNTER 2017-11-28 22:40 | Inpatient (IN) | payer MEDICAID ==
[2017-11-28 22:40] VITALS: BMI 37.0
[2017-11-29 01:03] LABS: BASO # 0.1 K/uL (0.0-0.2); BASO % 0.8 % (0.0-2.0); EOS # 0.5 K/uL (0.0-0.7); EOS % 4.4 % (0.0-4.0); HEMOGLOBIN 12.4 g/dL (12.0-16.0); LYMPH # 3.5 K/uL (1.0-4.3); LYMPH % 30.1 % (20.0-40.0); MEAN CELL VOLUME 81.9 fl (81.0-99.0); MEAN CORPUSCULAR HEMOGLOBIN 26.6 pg (27.0-31.0); MEAN CORPUSCULAR HGB CONC 32.5 g/dL (33.0-37.0); MEAN PLATELET VOLUME 8.8 fl (7.2-11.7); MONO # 0.7 K/uL (0.0-0.8); MONO % 5.8 % (0.0-10.0); NEUT # 6.9 K/uL (1.8-7.0); NEUT % 58.9 % (50.0-75.0); RBC 4.66 Mil/uL (3.80-5.20); RED CELL DISTRIBUTION WIDTH 14.6 % (11.5-14.5); WHITE BLOOD COUNT 11.7 K/uL (4.8-10.8)
[2017-11-29 01:10] LABS: SQUAMOUS EPITHIAL 9 /hpf (0-5); URINE BACTERIA RARE (<OCC); URINE BILIRUBIN NEGATIVE (NEGATIVE); URINE BLOOD NEGATIVE (NEGATIVE); URINE CLARITY CLOUDY (Clear); URINE COLOR YELLOW (YELLOW); URINE GLUCOSE (UA) NEG (Normal); URINE LEUKOCYTE ESTERASE MOD Leu/uL (Negative); URINE PROTEIN 30 mg/dL (NEGATIVE)
[2017-11-29 01:12] LABS: ACETAMINOPHEN < 10.0 ug/ml (10.0-30.0); SALICYLATE < 1.0 mg/dl
[2017-11-29 01:19] LABS: BLOOD UREA NITROGEN 9 mg/dl (7-17); CALCIUM 9.3 mg/dL (8.4-10.2); GFR AFRICAN-AMERICAN > 60; GFR NON-AFRICAN AMERICAN > 60
[2017-11-29 01:25] LABS: BENZODIAZEPINES, UR NEGATIVE (NEGATIVE)
[2017-11-29 01:32] LABS: BARBITURATES, UR NEGATIVE (NEGATIVE); OPIATES, UR POSITIVE (NEGATIVE); PHENCYCLIDINE, UR NEGATIVE (NEGATIVE)
--- NOTE | 2017-11-29 02:51 | ED PDOC ---
HPI: Psych/Substance Abuse Time Seen by Provider: 11/28/17 23:42 Chief Complaint (Nursing): Psychiatric Evaluation Chief Complaint (Provider): Psychiatric Evaluation History Per: Patient History/Exam Limitations: no limitations Additional Complaint(s): Patient is a 27 y/o female with history of PTSD, anxiety and panic disorder who presents to the ED for psychiatric evaluation. Patient states she has lost 3 family members this past year and she is now hallucinating that she is hearing and seeing them. Patient states that they are telling her to "join them." She denies suicidal or homicidal ideation. Denies drugs or alcohol abuse. Past Medical History Reviewed: Historical Data, Nursing Documentation, Vital Signs Vital Signs: Last Vital Signs Temp 98.4 F 11/28/17 23:28 Pulse 83 11/28/17 23:28 Resp 19 11/28/17 23:28 BP 114/72 11/28/17 23:28 Pulse Ox 97 11/28/17 23:28 - Medical History PMH: Anemia, Anxiety, Asthma, Bipolar Disorder, Bronchitis, Depression, Migraine , Personality Disorder, Post Traumatic Stress Disorder Denies: Alzheimer's Disease, Arthritis, Cardia Arrhythmia, CHF, COPD, Crohn' s Disease, Dementia, Diabetes, Diverticulitis, Emphysema, Fibromyalgia, Fractures, Gastrointestinal Ulcer, Gall Bladder Disease, Hepatitis, HIV, HTN, Hypercholesterolemia, Hyperthyroidism, Hypothyroidism, Kidney Stones, Mitral Valve Prolapse, Osteoporosis, Pancreatitis, Paranoia, Parkinson's Disease, Peripheral Edema, Pneumonia, Chronic Kidney Disease, Schizophrenia, Seizures, Sickle Cell Disease, Sexually Transmitted Disease, Sleep Apnea, TIA - Surgical History Surgical History: Denies: Appendectomy, Cholecystectomy, Coronary Stent, Pacemaker - Family History Family History: States: Unknown Family Hx - Social History Alcohol: None Drugs: Denies - Home Medications Home Medications: Ambulatory Orders Medication Instructions Recorded Tramadol HCl [Ultram] 50 mg PO Q8 05/14/17 Prazosin HCl [Minipress] 2 mg PO HS 30 Days #30 cap 09/17/17 traZODone [Desyrel] 100 mg PO HS 30 Days #30 tab 09/17/17 Acetaminophen with Codeine 1 tab PO TID 11/29/17 [Tylenol with Codeine No. 4 300 mg-60 mg] DULoxetine [Cymbalta] 120 mg PO HS 11/29/17 Gabapentin [Neurontin] 400 mg PO TID 11/29/17 clonazePAM [Klonopin] 0.5 mg PO BID 11/29/17 risperiDONE [RisperDAL Tab] 2 mg PO HS 11/29/17 - Allergies Allergies/Adverse Reactions: Allergies Allergy/AdvReac Type Severity Reaction Status Date / Time beef derived (bovine) AdvReac VOMITING Verified 11/28/17 23:27 chicken derived AdvReac VOMITING Verified 11/28/17 23:27 PORK AdvReac VOMITING Verified 11/28/17 23:27 shellfish derived AdvReac VOMITING Verified 11/28/17 23:27 Review of Systems ROS Statement: Except As Marked, All Systems Reviewed And Found Negative Constitutional: Negative for: Fever Psych: Positive for: Psychosis (hallucinations). Negative for: Suicidal ideation Physical Exam - Reviewed Nursing Documentation Reviewed: Yes Vital Signs Reviewed: Yes - Physical Exam Appears: Positive for: Non-toxic, No Acute Distress Head Exam: Positive for: ATRAUMATIC, NORMOCEPHALIC Skin: Positive for: Normal Color, Warm, Dry Eye Exam: Positive for: EOMI, Normal appearance, PERRL Neck: Positive for: Normal, Painless ROM Cardiovascular/Chest: Positive for: Regular Rate, Rhythm. Negative for: Murmur Respiratory: Positive for: Normal Breath Sounds. Negative for: Respiratory Distress Gastrointestinal/Abdominal: Positive for: Normal Exam, Soft. Negative for: Tenderness Back: Positive for: Normal Inspection. Negative for: L CVA Tenderness, R CVA Tenderness Extremity: Positive for: Normal ROM. Negative for: Pedal Edema, Deformity Neurologic/Psych: Positive for: Alert, Oriented, Mood/Affect (Depressed). Negative for: Motor/Sensory Deficits - Laboratory Results Result Diagrams: 11/29/17 00:47 11/29/17 00:47 - ECG O2 Sat by Pulse Oximetry: 97 (RA) Pulse Ox Interpretation: Normal Medical Decision Making Medical Decision Making: Time: 00:12 Impression: 27 y/o female with history of PTSD and anxiety presenting with likely exacerbation of chronic conditions secondary to loss of family members. Initial Plan: --Acetaminophen --Alcohol serum --BMP --Drug screen --Salicylate --Crisis Evaluation --CBC w/ diff --UA 300 --Patient meets admission criteria according to Dr. Manriquez. Will be admitted with dx: depression. ----- Scribe Attestation: Documented by Wagner Cooper, acting as a scribe for Garland Zuniga MD. Provider Scribe Attestation: All medical record entries made by the Scribe were at my direction and personally dictated by me. I have reviewed the chart and agree that the record accurately reflects my personal performance of the history, physical exam, medical decision making, and the department course for this patient. I have also personally directed, reviewed, and agree with the discharge instructions and disposition. Disposition - Clinical Impression Clinical Impression: Depression - Disposition Disposition Time: 03:00 Condition: FAIR
[2017-11-29 04:20] VITALS: O2SAT 97
[2017-11-29] MEDS ORDERED: DiphenhydrAMINE 50 mg/ml Inj IM PRN (06:49)
[2017-11-29] MEDS ORDERED: Magnesium Hydroxide Susp 30 ml UD PO PRN (06:49)
[2017-11-29] MEDS ORDERED: Alum-Mag Hydrox-Simethicone Susp (30 mL) PO PRN (06:49)
--- NOTE | 2017-11-29 11:07 | PCM.PSYCH ---
Initial Psychiatric Evaluation - Initial Psychiatric Evaluation Type of Admission: Voluntary Legal Status: Capacity Chief Complaint (in patient's own words): "I'm hearing voices telling me to kill myself." Patient's Reaction to Hospitalization: HPI: 27 yo female w/ h/o MDD, PTSD, RIA, Borderline Personality Disorder presents w/ worsening depression and anxiety in the context of a in a family 3 weeks ago. She reports hearing AH telling her to kill herself and join her family members. She is able to contract for safety at this time but does report feeling intermittent suicidal ideations. She reports feelings of hopelessness and sleep/appetite disturbances. PMHx: Asthma, chronic back pain, herniated disks, Fibromyalgia PPHx: Multiple past psychiatric admission for depression/anxiety, currently being tx w/ Klonopin, Cymbalta, Prazosin, Risperdal and Trazodone; Risperdal increased yesterday by primary psychiatrist ALL: beef, chicken, pork, shellfish; no drug allergies SHx: Lives w/ , smokes 1/2 ppd; denies drugs/etoh FHx: "everyone in my family has mental illness" Current Medications: Active Medications Generic Name Dose Route Start Last Admin Trade Name Freq PRN Reason Stop Dose Admin Acetaminophen 650 mg 11/29/17 06:49 Tylenol 325mg Tab PO Q4 PRN pain level 4-7 Al Hydrox/Mg Hydrox/Simethicone 30 ml 11/29/17 06:49 Maalox Plus 30 Ml PO Q4 PRN Dyspepsia Clonazepam 0.5 mg 11/29/17 21:00 Klonopin PO Q12 NIXON Diphenhydramine HCl 50 mg 11/29/17 06:49 Benadryl IM Q6 PRN Extrapyramidal S/S Unable PO Diphenhydramine HCl 50 mg 11/29/17 06:49 Benadryl PO Q6 PRN Extrapyramidal Symptoms Diphenhydramine HCl 50 mg 11/29/17 06:53 Benadryl PO HS PRN Sleep Duloxetine HCl 120 mg 11/29/17 22:00 Cymbalta PO HS NIXON Gabapentin 400 mg 11/29/17 13:00 Neurontin PO TID NIXON Haloperidol 5 mg 11/29/17 06:49 Haldol PO Q4 PRN Agitation Haloperidol Lactate 5 mg 11/29/17 06:49 Haldol IM Q4 PRN Agitation, Unable to Take PO Lorazepam 1 mg 11/29/17 06:49 Ativan IM Q8H PRN Anxiety/Agitation,Unable PO Lorazepam 1 mg 11/29/17 06:49 Ativan PO Q8 PRN Anxiety/Agitation Magnesium Hydroxide 30 ml 11/29/17 06:49 Milk Of Magnesia PO HS PRN Constipation Prazosin HCl 2 mg 11/29/17 22:00 Minipress PO HS NIXON Risperidone 2 mg 11/29/17 22:00 Risperdal Tab PO HS NIXON Tramadol HCl 50 mg 11/29/17 10:40 Ultram PO Q8 PRN Pain, moderate (4-7) Trazodone HCl 100 mg 11/29/17 22:00 Desyrel PO HS NIXON Past Psychiatric History - Past Psychiatric History Previous Treatment History: Inpatient Pertinent Medical Hx (Current Medical&Sleep Prob, Allergies): Allergies Allergy/AdvReac Type Severity Reaction Status Date / Time beef derived (bovine) AdvReac VOMITING Verified 11/28/17 23:27 chicken derived AdvReac VOMITING Verified 11/28/17 23:27 PORK AdvReac VOMITING Verified 11/28/17 23:27 shellfish derived AdvReac VOMITING Verified 11/28/17 23:27 Tramadol HCl [Ultram] 50 mg PO Q8 05/14/17 Prazosin HCl [Minipress] 2 mg PO HS 30 Days #30 cap 09/17/17 traZODone [Desyrel] 100 mg PO HS 30 Days #30 tab 09/17/17 Acetaminophen with Codeine [Tylenol with Codeine No. 4 300 mg-60 mg] 1 tab PO TID 11/29/17 DULoxetine [Cymbalta] 120 mg PO HS 11/29/17 Gabapentin [Neurontin] 400 mg PO TID 11/29/17 clonazePAM [Klonopin] 0.5 mg PO BID 11/29/17 risperiDONE [RisperDAL Tab] 2 mg PO HS 11/29/17 Review of Systems - Psychiatric Psychiatric: As Per HPI, Abnormal Sleep Pattern, Anxiety, Auditory Hallucinations, Behavioral Changes, Change in Appetite, Depression, Difficulty Concentrating, Hopelessness, Irritability, Mood Swings Mental Status Examination - Personal Presentation Personal Presentation: Looks stated age, Obese - Affect Affect: Constricted, Depressed - Motor Activity Motor Activity: Calm - Reliability in Providing Information Reliability in Providing Information: Good - Speech Speech: Organized - Mood Mood: Depressed, Anxious - Formal Thought Process Formal Thought Process: Hallucinations - Hallucinations/Delusions Hallucinations: Auditory - Obsessions/Compulsions Obsessions: No Compulsions: No - Cognitive Functions Orientation: Person, Place, Situation, Time Sensorium: Alert Attention/Concentration: Attentive Estimate of Intelligence: Average Judgement: Intact, as evidence by: Insight regarding need for hospitalization Memory: Recent intact, as evidence by: Ability to recall events of the day, Remote intact, as evidenced by: Abilit to recall sig. life events, Remote intact , as evidenced by: Ability to recall historical events - Risk Risk: Suicidal, Diminished functioning - Strength & Assets Inventory Strength & Assets Inventory: Family support, Cooperative DSM 5 DX - DSM 5 DSM 5 Diagnosis: Major Depressive Disorder w/ Psychotic Features; Generalized Anxiety Disorder; PTSD; Borderline Personality Disorder - Recommended/Plan of Treatment Treatment Recommendations and Plan of Treatment: Major Depressive Disorder w/ Psychotic Features; Generalized Anxiety Disorder; PTSD; Borderline Personality Disorder -Admit to psychiatry unit -Individual and group therapy -Medication management -Medicine consult -Psychoeducation -Nicotine patch -Disposition planning Projected ELOS: 5-9 days Discharge Plan and Discharge Criteria: Discharge when patient is psychiatrically stable - Smoking Cessation Smoking Cessation Initiated: Yes
[2017-11-30] MEDS ORDERED: guaiFENesin DM 200 mg-20 mg/10 ml UD PO PRN (07:27)
--- NOTE | 2017-11-30 07:27 | CP.PCM.HP ---
History of Present Illness - History of Present Illness History of Present Illness: pt admitted for depression. nosi/hi verbalized at this time. no hallucinations. c/o cough/congestion. no f/c, n/v/d. Present on Admission - Present on Admission Any Indicators Present on Admission: No Review of Systems - EENT Nose/Mouth/Throat: As Per HPI, Nasal Congestion - Respiratory Respiratory: As Per HPI, Cough Past Patient History - Infectious Disease Hx of Infectious Diseases: None - Tetanus Immunizations Tetanus Immunization: Unknown - Past Medical History & Family History Past Medical History?: Yes - Past Social History Alcohol: None Drugs: Denies - CARDIAC Hx Cardiac Disorders: No - PULMONARY Hx Respiratory Disorders: No - NEUROLOGICAL Hx Neurological Disorder: No - HEENT Hx HEENT Problems: No - RENAL Hx Chronic Kidney Disease: No - ENDOCRINE/METABOLIC Hx Endocrine Disorders: No - HEMATOLOGICAL/ONCOLOGICAL Hx Blood Disorders: No - INTEGUMENTARY Hx Dermatological Problems: No - MUSCULOSKELETAL/RHEUMATOLOGICAL Hx Musculoskeletal Disorders: Yes (bulging disc, herniated disc) - GASTROINTESTINAL Hx Crohn's Disease: No Hx Diverticulitis: No Hx Gall Bladder Disease: No Hx Pancreatitis: No - GENITOURINARY/GYNECOLOGICAL Hx Genitourinary Disorders: No - PSYCHIATRIC Hx Psychophysiologic Disorder: Yes (anxiety, depression, PTSD, eating disorder, borderline personality, self chicas) - SURGICAL HISTORY Hx Appendectomy: No Hx Cholecystectomy: No Hx Coronary Stent: No - ANESTHESIA Hx Anesthesia: No Hx Anesthesia Reactions: No Hx Malignant Hyperthermia: No Meds Allergies/Adverse Reactions: Allergies Allergy/AdvReac Type Severity Reaction Status Date / Time beef derived (bovine) AdvReac VOMITING Verified 11/28/17 23:27 chicken derived AdvReac VOMITING Verified 11/28/17 23:27 PORK AdvReac VOMITING Verified 11/28/17 23:27 shellfish derived AdvReac VOMITING Verified 11/28/17 23:27 Physical Exam - Constitutional Appears: Well, Non-toxic, No Acute Distress - Head Exam Head Exam: ATRAUMATIC, NORMAL INSPECTION, NORMOCEPHALIC - Eye Exam Eye Exam: EOMI, Normal appearance, PERRL Pupil Exam: NORMAL ACCOMODATION, PERRL - ENT Exam ENT Exam: Mucous Membranes Moist, Normal Exam, Normal Oropharynx - Neck Exam Neck exam: Positive for: Normal Inspection - Respiratory Exam Respiratory Exam: Clear to Auscultation Bilateral, NORMAL BREATHING PATTERN - Cardiovascular Exam Cardiovascular Exam: REGULAR RHYTHM, RRR, +S1, +S2 - GI/Abdominal Exam GI & Abdominal Exam: Normal Bowel Sounds, Soft. absent: Tenderness - Exam Exam: Circumcision - Extremities Exam Extremities exam: Positive for: full ROM, normal capillary refill, normal inspection, pedal pulses present - Back Exam Back exam: NORMAL INSPECTION - Neurological Exam Neurological exam: Alert, CN II-XII Intact, Normal Gait, Oriented x3, Reflexes Normal - Psychiatric Exam Psychiatric exam: Normal Affect, Normal Mood - Skin Skin Exam: Dry, Intact, Normal Color, Warm Results - Vital Signs Recent Vital Signs: Last Vital Signs Temp 97.9 F 11/29/17 17:00 Pulse 72 11/29/17 20:58 Resp 18 11/29/17 17:00 BP 130/78 11/29/17 20:58 Pulse Ox 97 11/29/17 06:21 - Labs Result Diagrams: 11/29/17 00:47 11/29/17 00:47 Assessment & Plan (1) DVT prophylaxis Assessment and Plan: ambulation Status: Acute (2) Depression Assessment and Plan: psych meds interventions therapies Status: Acute (3) URI (upper respiratory infection) Assessment and Plan: robitussin flonase Status: Acute Decision To Admit - Pt Status Changed To: Hospital Disposition Of: Inpatient - Admit Certification Admit to Inpatient:: After my assessment, the patient will require hospitalization for at least two midnights. This is because of the severity of symptoms shown, intensity of services needed, and/or the medical risk in this patient being treated as an outpatient. - . Bed Request Type: Adult Psychiatry Admitting Physician: Cari Cuello
--- NOTE | 2017-11-30 07:58 | PCM.PYCHPN ---
Psychiatric Progress Note - Psychiatric Progress Note Patient seen today, length of contact: Patient evaluated, case discussed w/ team , chart reviewed Patient Chief Complaint: "I'm depressed." Problems Identified/Issues Discussed: Patient reports feeling depressed and anxious. She denies hearing AH today. She denies acute suicidal ideation/plan/intent. NO adverse effects to medications reported. Medication Change: No Medical Record Reviewed: Yes Consults ordered or reviewed: Medicine consult Mental Status Examination - Cognitive Function Orientation: Person, Place, Situation, Time Memory: Intact Attention: WNL Concentration: WNL Association: WNL Fund of Knowledge: [facility] Decription of patient's judgement and insights: Improving I/J - Mood Mood: Depressed, Anxious - Affect Affect: Constricted, Depressed - Formal Thought Process Formal Thought Process: No Impairment Psychotic Thoughts and Behaviors: Denies AH/VH/paranoia/delusions - Suicidal Ideation Suicidal Ideation: No - Homicidal Ideation Homicidal Ideation: No Goal/Treatment Plan - Goal/Treatment Plan Need for Continued Stay: Remain at risks for inpatient hospitalization, Severe depression anxiety, Discharge may exacerbated symptoms Progress Toward Problem(s) and Goals/Treatment Plan: Major Depressive Disorder w/ Psychotic Features; Generalized Anxiety Disorder; PTSD; Borderline Personality Disorder -Individual and group therapy -Continue current medications -Medicine consult -Psychoeducation -Nicotine patch -Disposition planning Estimated Date of D/C: 12/05/17
[2017-11-30 08:19] LABS: T4 8.53 ug/dl (5.5-11.0)
[2017-11-30] MEDS: Tmp-Smz 800 mg-160 mg DS Tab PO SCH ×2 (12:54→21:16)
--- NOTE | 2017-11-30 18:51 | PCM.BM ---
<Abram Payan - Last Filed: 11/30/17 18:49> Treatment Plan Problems - Problems identified on initial assessmt Hopelessness/Helplessness Date Initiated: 11/29/17 Time Initiated: 17:00 Assessment reference: NA Status: Active Treatment assets and liabiliti Patient Assests: cooperative, self-reliant, ADL independent, physically healthy , good support system, cognitively intact Patient Liabilities: physical pain, dietary restrictions - Milieu Protocol Maintain good personal hygiene: daily Encourage regular showers, daily Remind patient to perform daily oral care, daily Assist patient to perform ADL's Conduct patient checks and document Observation sheet: Q15 minutes Maintain personal safety: every shift Educate patient to report safety concerns to staff, every shift Monitor environment for contraband/sharps Medication safety: Monitor for expected outcome, potential side effects: every shift, Assess barriers to learning: every shift, Assess readiness for medication education: every shift Milieu Narrative: Major Depressive Disorder w/ Psychotic Features; Generalized Anxiety Disorder; PTSD; Borderline Personality Disorder -Individual and group therapy -Continue current medications -Medicine consult -Psychoeducation -Nicotine patch -Disposition planning Family Contact Family involvement: Family/SO is involved Family contact: Patient agrees to contact Discharge/Continuing Care - Treatment Team Participation Patient/Family/SO Statement: Major Depressive Disorder w/ Psychotic Features; Generalized Anxiety Disorder; PTSD; Borderline Personality Disorder -Individual and group therapy -Continue current medications -Medicine consult -Psychoeducation -Nicotine patch -Disposition planning <Abdiaziz Ramírez - Last Filed: 12/02/17 15:44> Family Contact Family involvement: Family/SO is involved Family contact: Family has been contacted by patient, Patient declines to allow family contact at present Family contact name: Pt denied. - Outside Agency Agency 1 Care involvment: Following patient during stay, Information-sharing Agency contact name: [facility] - Dr. Lima Agency contact number: [phone] Agency 2 Care involvment: Following patient during stay, Information-sharing [facility] Agency contact number: - Goals for Treatment Patient goals for treatment: Pt reported she has no goals for treatment at this point as she feels better and believes the increase in Risperdal has aided in her psychotic symptoms and impulsivity. Discharge/Continuing Care - Education Needs Education Needs: Patient Medication, Patient Diagnosis/Disease Process, Patient Coping Skills, Patient Placement options, Patient Community resources, Patient Aftercare Safety Plan - Discharge Discharge Criteria: Tolerates medication w/o severe side effects, Free of Suicidal thoughts, Normal sleep pattern, Ability to care for self, Reduction of target symptoms Discharge to:: Home, With Family - Treatment Team Participation Patient/Family/SO Statement: Pt reported that she feels that her mood had improved and that she was in a " bad place" upon admission. pt was unable to give any precursors to her disassociation. Pt asked to leave today, 12/02/17 as she has a mass commemorating her sister's tomorrow morning and being around her family and attending the mass would be more therapeutic than being in the hospital. Pt denied SI/HI, AVT hallucinations, paranoia and delusions. 12/02/17 15:41 Discussed with Family/SO: No Was Patient/Family/SO present at Treatment Team Meeting: Yes
[2017-12-01] MEDS: Tmp-Smz 800 mg-160 mg DS Tab PO SCH ×2 (09:38→21:20)
--- NOTE | 2017-12-01 09:39 | PCM.PYCHPN ---
Psychiatric Progress Note - Psychiatric Progress Note Patient seen today, length of contact: Patient evaluated, case discussed w/ team , chart reviewed Patient Chief Complaint: "I'm depressed." Problems Identified/Issues Discussed: Patient reports that her mood is improving. She is more hopeful and goal oriented. She states that she wants to be discharged prior to Saturday to attend an family event. She denies acute AH/VH/SI/HI. NO adverse effects to medications reported. Medication Change: No Medical Record Reviewed: Yes Consults ordered or reviewed: Medicine consult Mental Status Examination - Cognitive Function Orientation: Person, Place, Situation, Time Memory: Intact Attention: WNL Concentration: WNL Association: WNL Fund of Knowledge: WN Decription of patient's judgement and insights: Improving I/J - Mood Mood: Anxious - Affect Affect: Constricted - Formal Thought Process Formal Thought Process: No Impairment Psychotic Thoughts and Behaviors: Denies AH/VH/paranoia/delusions - Suicidal Ideation Suicidal Ideation: No - Homicidal Ideation Homicidal Ideation: No Goal/Treatment Plan - Goal/Treatment Plan Need for Continued Stay: Remain at risks for inpatient hospitalization, Severe depression anxiety, Discharge may exacerbated symptoms Progress Toward Problem(s) and Goals/Treatment Plan: Major Depressive Disorder w/ Psychotic Features; Generalized Anxiety Disorder; PTSD; Borderline Personality Disorder -Individual and group therapy -Continue current medications -Medicine consult -Psychoeducation -Nicotine patch -Disposition planning Estimated Date of D/C: 12/03/17 - Smoking Cessation Smoking Cessation Initiated: Yes
[2017-12-01 19:58] VITALS: PULSE 86; RESP 18
[2017-12-02] MEDS: Tmp-Smz 800 mg-160 mg DS Tab PO SCH (09:29)
[2017-12-02 09:37] VITALS: BP 121/79; TEMP 97
--- NOTE | 2017-12-02 13:14 | PCM.PYCHDC ---
Mental Status Examination - Mental Status Examination Orientation: Person, Place, Situation Memory: Intact Mood: Neutral Affect: Broad Speech: Appropriate Attention: WNL Concentration: WNL Association: WNL Fund of Knowledge: WNL Formal Thought Process: No Impairment Description of patient's judgement and insight: fair insight and judgment Psychotic Thoughts and Behaviors: pt reported clearing off of the auditory hallucinations, denied any current psychotic symptoms, non elicited Suicidal Ideation: No Current Homicidal Ideation?: No Discharge Summary - Discharge Note Reason for Hospitalization: 27 yo female w/ h/o MDD, PTSD, RIA, Borderline Personality Disorder presents w/ worsening depression and anxiety in the context of a in a family 3 weeks ago. She reports hearing telling her to kill herself and join her family members. She is able to contract for safety at this time but does report feeling intermittent suicidal ideations. She reports feelings of hopelessness and sleep/appetite disturbances. Consultations:: List each consultation separately and include: 1. Reason for request. 2. Findings. 3. Follow-up Summary of Hospital Course include:: 1. Description of specific treatment plan utilized for patients during their course of treatmen. 2. Summarize the time- course for resolution of acute symptoms and/or regressed behaviors. 3. Describe issues identified and worked on during hospitalization. 4. Describe medication utilized. 5. Describe medical problems identified and treated. 6. Reassessment of suicide risk Summary of Hospital Course: pt on admission, presented with depressed mood and affect, was restarted on cymbalta 120mg, risperidone was increased to 2mg qhs , she was provided with CBT , supportive and group therapy, pt reported clearing off of the AH with the increase in risperidone dose to 2mg qhs, she was compliant with treatment , attended groups, no reported side effects of medications on discharge mental status was stable pt denied any current suicidal or homicidal ideation, follow up arranged by home health care social worker at [facility] - Final Diagnosis (DSM 5) Condition upon Discharge: FAIR DSM 5: borderline personality disorder depression Disposition: HOME/ ROUTINE Prescriptions/Medication Reconciliation: risperiDONE [RisperDAL Tab] 2 mg PO HS 30 Days #30 tab Sulfamethoxazole/Trimethoprim [Bactrim DS Tab] 1 tab PO Q12 4 Days #8 tab - Smoking Cessation Smoking Cessation Medication prescribed: No - Antipsychotic Medications Pt discharged on 2 or more routine antipsychotic medications: No
== END 2017-12-02 18:57 | disposition home or self-care (01) | DRG 428 ==
LOC: H.ER 22:40 → H.ERHOLD 11-29 01:50 → H.PSYCH 11-29 06:42
PROVIDERS: ADMIT Psychiatry & Neurology Psychiatry; ATTEND Psychiatry & Neurology Psychiatry
PROC: GZHZZZZ Group Psychotherapy (ICD-10-PCS; principal; 2017-11-29)
PROC: GZ51ZZZ Individual Psychotherapy, Behavioral (ICD-10-PCS; 2017-11-29)
DX: F60.3 Borderline personality disorder (principal); J06.9 Acute upper respiratory infection, unspecified; J45.909 Unspecified asthma, uncomplicated; M79.7 Fibromyalgia; R45.851 Suicidal ideations; Z86.59 Personal history of other mental and behavioral disorders; F31.9 Bipolar disorder, unspecified; D64.9 Anemia, unspecified; F41.9 Anxiety disorder, unspecified; F45.9 Somatoform disorder, unspecified; G43.909 Migraine, unspecified, not intractable, without status migrainosus; M54.9 Dorsalgia, unspecified; G89.29 Other chronic pain; J40 Bronchitis, not specified as acute or chronic; Z79.899 Other long term (current) drug therapy; F32.3 Major depressive disorder, single episode, severe with psychotic features; F41.0 Panic disorder [episodic paroxysmal anxiety]; F41.1 Generalized anxiety disorder; F43.10 Post-traumatic stress disorder, unspecified; Z91.018 Allergy to other foods